=== PATIENT | male | born 1975 | race Two or more races ===

== ENCOUNTER 2025-07-08 14:26 | Emergency (ER) | payer OTHER ==
[~2025-07-08] VITALS: Ht 170.2 cm; Wt 118.0 kg
[2025-07-08 14:36] VITALS: TEMP 98.2
[2025-07-08] MEDS: LIDOCAINE 5% TRANSDERMAL PATCH TD ONE (15:16)
[2025-07-08] MEDS: KETOROLAC TROMETHAMINE 30 MG/ML VIAL IVP ONE (15:16)
[2025-07-08] MEDS ORDERED: CYCL-448 PO (16:04)
[2025-07-08] MEDS ORDERED: IBUP-1492 PO (16:04)
[2025-07-08 16:11] VITALS: BP 123/68; PULSE 67; RESP 16; O2SAT 95
== END 2025-07-08 16:23 | disposition home or self-care (01) ==
LOC: EMS 14:26
DX: S16.1XXA Strain of muscle, fascia and tendon at neck level, initial encounter (principal); M54.50 Low back pain, unspecified; R51.9 Headache, unspecified; I10 Essential (primary) hypertension; V49.40XA Driver injured in collision with unspecified motor vehicles in traffic accident, initial encounter; Y93.89 Activity, other specified; Y92.410 Unspecified street and highway as the place of occurrence of the external cause; Y99.8 Other external cause status
CPT/HCPCS: 99285; 70450; 96374; 72125; J1885